=== PATIENT | female | born 1955 | race Caucasian/White ===

== ENCOUNTER 2019-11-29 12:38 | Emergency (ER) | payer OTHER ==
[~2019-11-29] VITALS: Ht 154.9 cm; Wt 88.9 kg
[2019-11-29 12:53] VITALS: BP_SYST 143
--- NOTE | 2019-11-29 12:53 | NUR ---
Patient triaged and placed in waiting room. VSS and patient appears in no acute distress at this time. Accompanied by self, awaiting available bed, and MD notified of need for MSE.
--- NOTE | 2019-11-29 12:54 | NUR ---
Pt brought by self,A&Ox4, pt presents to ER with R wrist/R hand pain and swelling after she was taking trash out 2 weeks ago, afebrile, skin pink and warm , cap refill <3.
--- NOTE | 2019-11-29 13:10 | NUR ---
Dr Jimenez at bedside examining patient
--- NOTE | 2019-11-29 14:20 | NUR ---
Pt sitting in bed, states pain improving
[2019-11-29] MEDS ORDERED: KETOROLAC TROMETHAMINE 30 MG VIAL IM ONE (14:30)
--- NOTE | 2019-11-29 15:59 | NUR ---
Patient given written and verbal discharge instructions and verbalizes understanding. ER MD discussed with patient the results and treatment provided. Patient in stable condition. ID arm band removed. I No Rx given. Patient educated on pain management and to follow up with PMD. Pain Scale 2/10 tolerable for patient. Opportunity for questions provided and answered. Medication side effect fact sheet provided.
[2019-11-29 16:00] VITALS: BP_SYST 143
== END 2019-11-29 16:00 | disposition home or self-care (01) ==
LOC: SED 12:38
DX: S63.501A Unspecified sprain of right wrist, initial encounter (principal); W18.39XA Other fall on same level, initial encounter; Y93.89 Activity, other specified; Y92.89 Other specified places as the place of occurrence of the external cause; Y99.8 Other external cause status
CPT/HCPCS: 29125; 73110; 73130; 96372; 99283; J1885

== ENCOUNTER 2023-03-17 06:55 | Day surgery (SDC) | payer OTHER ==
[~2023-03-17] VITALS: Ht 154.9 cm; Wt 85.7 kg
[2023-03-17] MEDS ORDERED: DEXAMETHASONE SOD PHOSPHATE 4 MG/ML VIAL ONE (07:45)
[2023-03-17] MEDS ORDERED: NS IRRIG SOLN 1000 ML IR ONE (07:45)
[2023-03-17] MEDS ORDERED: SEVOFLURANE 15 MIN GAS INH ONE (07:45)
[2023-03-17] MEDS ORDERED: ONDANSETRON HCL 4 MG/2 ML VIAL ONE (07:45)
[2023-03-17] MEDS ORDERED: LR 1,000 ML IV.SOLN IV ONE (07:45)
[2023-03-17] MEDS ORDERED: PROPOFOL 200MG/ 20ML VIAL (DIPRIVAN) IV ONE (07:45)
[2023-03-17] MEDS ORDERED: ceFAZolin SODIUM 2 GM VIAL ONE (07:45)
[2023-03-17] MEDS ORDERED: fentaNYL CITRATE/PF 100 MCG/2 ML AMP ONE (07:45)
[2023-03-17] MEDS ORDERED: MIDAZOLAM HCL 2 MG/2 ML VIAL (VERSED) ONE (07:45)
[2023-03-17] MEDS ORDERED: METOCLOPRAMIDE HCL 10 MG/2 ML VIAL IVP PRN (08:30)
[2023-03-17] MEDS ORDERED: MEPERIDINE HCL/PF 25 MG/ML DISP.SYRIN IVP PRN (08:30)
[2023-03-17] MEDS ORDERED: HYDROmorphone 1 MG/ML INJ. CARTRIDGE IVP PRN (08:30)
[2023-03-17] MEDS ORDERED: LR 1,000 ML IV SCH (08:30)
[2023-03-17] MEDS ORDERED: HYDROcodone/ACETAMIN 5-325 MG TAB (NORCO/ VICODIN) PO PRN (08:45)
[2023-03-17] MEDS ORDERED: OXYCODONE/ACETAMINOPHEN 5-325 TABLET PO PRN ×2 (08:45)
[2023-03-17] MEDS ORDERED: ONDANSETRON HCL 4 MG/2 ML VIAL IVP PRN (08:45)
[2023-03-17] MEDS ORDERED: HYDROmorphone 1 MG/ML INJ. CARTRIDGE ONE (09:12)
[2023-03-17] MEDS: HYDROmorphone 1 MG/ML INJ. CARTRIDGE IVP PRN ×2 (09:15→09:30)
[2023-03-17 13:10] VITALS: BP_SYST 135
== END 2023-03-17 13:10 | disposition home or self-care (01) ==
LOC: SDS 06:55 → SMU 06:56 → SDS 13:10
PROVIDERS: ATTEND Specialist
DX: N95.0 Postmenopausal bleeding (principal); N85.2 Hypertrophy of uterus; N39.3 Stress incontinence (female) (male); R93.89 Abnormal findings on diagnostic imaging of other specified body structures; I10 Essential (primary) hypertension; E11.69 Type 2 diabetes mellitus with other specified complication; E78.5 Hyperlipidemia, unspecified; E11.40 Type 2 diabetes mellitus with diabetic neuropathy, unspecified; Z90.49 Acquired absence of other specified parts of digestive tract
CPT/HCPCS: 87081; 58558; 82962; 88305; J1100; J3465; J2405; J2704; J3010; J1170; J7120; C1819; 88341; 88342; 88361

== ENCOUNTER 2024-04-22 16:39 | Inpatient (IN) | payer OTHER ==
[~2024-04-22] VITALS: Ht 154.9 cm; Wt 71.7 kg
[2024-04-22 16:48] VITALS: BP_SYST 138; PULSE 105; RESP 18; TEMP 98.3; O2SAT 98
[2024-04-22] MEDS: ONDANSETRON 4 MG ODT TAB PO ONE (17:03)
[2024-04-22 17:42] LABS: BILIRUBIN,URINE NEGATIVE (NEGATIVE); BLOOD, URINE NEGATIVE (NEGATIVE); CLARITY/URINE CLEAR (CLEAR); COLOR,URINE YELLOW (YELLOW); GLUCOSE,URINE NEGATIVE (NEGATIVE); KETONES,URINE NEGATIVE (NEGATIVE); LEUKOCYTE ESTERASE ,URINE NEGATIVE (NEGATIVE); NITRITE, URINE NEGATIVE (NEGATIVE); PROTEIN URINE NEGATIVE (NEGATIVE); UROBILINOGEN,URINE 0.2 (0.2-1.0)
[2024-04-22 17:47] LABS: BASOPHILS # (AUTO) 0.1 K/uL (0.0-0.2); BASOPHILS % (AUTO) 1.3 % (0.0-2.0); EOSINOPHILS % (AUTO) 0.5 % (0.0-4.0); HEMATOCRIT 33.6 % (36-48); HEMOGLOBIN 11.4 g/dL (12.0-16.0); LYMPHOCYTES # (AUTO) 1.5 K/uL (1.0-5.5); LYMPHOCYTES % (AUTO) 18.3 % (20.5-51.5); MEAN CORPUSCULAR HEMOGLOBIN 32 pg (27-31); MEAN CORPUSCULAR HGB CONC 34 % (32-36); MEAN CORPUSCULAR VOLUME 94 fL (79.0-98.0); MONOCYTES # (AUTO) 0.5 K/uL (0.0-1.0); MONOCYTES % (AUTO) 6.5 % (1.7-9.3); NEUTROPHILS # (AUTO) 6.2 K/uL (1.8-7.7); NEUTROPHILS % (AUTO) 73.4 % (40.0-70.0); PLATELET COUNT (AUTO) 307 K/uL (130-430); RED BLOOD CELL COUNT(AUTO) 3.59 MIL/uL (4.2-6.2); RED CELL DISTRIBUTION WIDTH 17.1 % (9.0-15.0); WHITE BLOOD COUNT (AUTO) 8.4 K/uL (4.8-10.8)
[2024-04-22 18:22] LABS: ALBUMIN 2.8 g/dL (3.4-4.8); BILIRUBIN,DIRECT 0.2 mg/dL (0.0-0.3); CALCIUM 8.9 mg/dL (8.4-11.0); CREATININE 0.81 mg/dL (0.55-1.30); POTASSIUM 3.6 mmol/L (3.5-5.1); TOTAL BILIRUBIN 0.9 mg/dL (0.0-1.0); TOTAL PROTEIN, SERUM 7.4 g/dL (6.4-8.3)
[2024-04-22 20:36] VITALS: BP_SYST 151; PULSE 92; RESP 18; TEMP 98.4
[2024-04-22 20:53] VITALS: O2SAT 95
[2024-04-22] MEDS ORDERED: HYDROcodone/ACETAMIN 5-325 MG TAB (NORCO/ VICODIN) PO PRN (22:30)
[2024-04-22] MEDS: HYDROcodone/ACETAMIN 10-325 MG TAB PO PRN (22:54)
[2024-04-23 03:17] VITALS: BP_SYST 133; PULSE 76; RESP 18; TEMP 97.5; O2SAT 94
[2024-04-23 08:00] VITALS: BP_SYST 145; PULSE 88; RESP 18; TEMP 98; O2SAT 99
[2024-04-23] MEDS ORDERED: POLYETHYLENE GLYCOL 3350, 17 GM/ POWD.PACK PO SCH (09:00)
[2024-04-23] MEDS: POLYETHYLENE GLYCOL 3350, 17 GM/ POWD.PACK PO SCH (11:02)
[2024-04-23 12:00] VITALS: BP_SYST 140; PULSE 78; RESP 18; TEMP 98.5; O2SAT 99
[2024-04-23] MEDS ORDERED: HYDROcodone/ACETAMIN 5-325 MG TAB (NORCO/ VICODIN) PO PRN (13:30)
[2024-04-23] MEDS ORDERED: LORazepam 2 MG/ML VIAL IVP PRN (13:30)
[2024-04-23] MEDS ORDERED: ACETAMINOPHEN 325 MG TABLET PO PRN (13:45)
[2024-04-23 14:13] LABS: BASOPHILS # (AUTO) 0.1 K/uL (0.0-0.2); BASOPHILS % (AUTO) 1.2 % (0.0-2.0); EOSINOPHILS # (AUTO) 0.1 K/uL (0.0-0.4); EOSINOPHILS % (AUTO) 1.2 % (0.0-4.0); HEMATOCRIT 35.3 % (36-48); HEMOGLOBIN 12.1 g/dL (12.0-16.0); LYMPHOCYTES # (AUTO) 1.7 K/uL (1.0-5.5); LYMPHOCYTES % (AUTO) 20.7 % (20.5-51.5); MEAN CORPUSCULAR HEMOGLOBIN 32 pg (27-31); MEAN CORPUSCULAR HGB CONC 34 % (32-36); MEAN CORPUSCULAR VOLUME 93 fL (79.0-98.0); MONOCYTES # (AUTO) 0.5 K/uL (0.0-1.0); MONOCYTES % (AUTO) 6.4 % (1.7-9.3); NEUTROPHILS # (AUTO) 5.8 K/uL (1.8-7.7); NEUTROPHILS % (AUTO) 70.5 % (40.0-70.0); PLATELET COUNT (AUTO) 344 K/uL (130-430); RED BLOOD CELL COUNT(AUTO) 3.79 MIL/uL (4.2-6.2); RED CELL DISTRIBUTION WIDTH 17.4 % (9.0-15.0); WHITE BLOOD COUNT (AUTO) 8.2 K/uL (4.8-10.8)
[2024-04-23 14:29] LABS: CALCIUM 9.3 mg/dL (8.4-11.0); CREATININE 0.79 mg/dL (0.55-1.30)
[2024-04-23 16:00] VITALS: BP_SYST 138; PULSE 84; RESP 18; TEMP 98.8; O2SAT 100
[2024-04-23] MEDS: GOLYTELY / COLYTE SOLUTION 4 LITERS PO ONE (17:46)
[2024-04-23] MEDS: BISACODYL 5 MG TABLET.DR (DULCOLAX) PO ONE (17:47)
[2024-04-23] MEDS: HYDROcodone/ACETAMIN 10-325 MG TAB PO PRN (18:16)
[2024-04-23 19:00] VITALS: O2SAT 99
[2024-04-23 20:00] VITALS: BP_SYST 143; PULSE 90; RESP 18; TEMP 98.6; O2SAT 96
[2024-04-24 00:40] VITALS: BP_SYST 143; PULSE 94; RESP 17; TEMP 96.9; O2SAT 97
[2024-04-24 05:34] LABS: BASOPHILS # (AUTO) 0.1 K/uL (0.0-0.2); BASOPHILS % (AUTO) 1.2 % (0.0-2.0); EOSINOPHILS # (AUTO) 0.1 K/uL (0.0-0.4); EOSINOPHILS % (AUTO) 0.9 % (0.0-4.0); HEMATOCRIT 30.9 % (36-48); HEMOGLOBIN 10.7 g/dL (12.0-16.0); LYMPHOCYTES # (AUTO) 1.5 K/uL (1.0-5.5); LYMPHOCYTES % (AUTO) 16.5 % (20.5-51.5); MEAN CORPUSCULAR HEMOGLOBIN 32 pg (27-31); MEAN CORPUSCULAR HGB CONC 35 % (32-36); MEAN CORPUSCULAR VOLUME 93 fL (79.0-98.0); MONOCYTES # (AUTO) 0.6 K/uL (0.0-1.0); MONOCYTES % (AUTO) 6.7 % (1.7-9.3); NEUTROPHILS % (AUTO) 74.7 % (40.0-70.0); PLATELET COUNT (AUTO) 293 K/uL (130-430); RED BLOOD CELL COUNT(AUTO) 3.32 MIL/uL (4.2-6.2); RED CELL DISTRIBUTION WIDTH 16.9 % (9.0-15.0); WHITE BLOOD COUNT (AUTO) 9.4 K/uL (4.8-10.8)
[2024-04-24 06:03] LABS: ALBUMIN 2.7 g/dL (3.4-4.8); CALCIUM 8.8 mg/dL (8.4-11.0); CREATININE 0.68 mg/dL (0.55-1.30); POTASSIUM 3.4 mmol/L (3.5-5.1); TOTAL BILIRUBIN 0.9 mg/dL (0.0-1.0); TOTAL PROTEIN, SERUM 6.9 g/dL (6.4-8.3)
[2024-04-24] MEDS: MIDAZOLAM HCL 5 MG/5 ML VIAL ONE (07:27)
[2024-04-24] MEDS: fentaNYL CITRATE/PF 100 MCG/2 ML AMP ONE (07:28)
[2024-04-24 08:00] VITALS: O2SAT 97
[2024-04-24 13:21] VITALS: BP_SYST 159; PULSE 90; RESP 18; TEMP 97.6; O2SAT 97
[2024-04-24 18:05] VITALS: BP_SYST 149; PULSE 89; RESP 16; TEMP 98.2; O2SAT 98
[2024-04-24 20:00] VITALS: BP_SYST 128; PULSE 98; RESP 18; TEMP 98.4; O2SAT 98
[2024-04-24] MEDS ORDERED: hydrALAZINE HCL 20 MG/ML VIAL IVP PRN (21:00)
[2024-04-25] VITALS: BP_SYST 130; PULSE 97; RESP 18; TEMP 98.2; O2SAT 98
[2024-04-25 06:44] LABS: BASOPHILS # (AUTO) 0.1 K/uL (0.0-0.2); BASOPHILS % (AUTO) 1.1 % (0.0-2.0); EOSINOPHILS # (AUTO) 0.1 K/uL (0.0-0.4); EOSINOPHILS % (AUTO) 1.4 % (0.0-4.0); LYMPHOCYTES # (AUTO) 1.7 K/uL (1.0-5.5); LYMPHOCYTES % (AUTO) 21.2 % (20.5-51.5); MEAN CORPUSCULAR HEMOGLOBIN 31 pg (27-31); MEAN CORPUSCULAR HGB CONC 33 % (32-36); MEAN CORPUSCULAR VOLUME 94 fL (79.0-98.0); MONOCYTES # (AUTO) 0.5 K/uL (0.0-1.0); NEUTROPHILS # (AUTO) 5.7 K/uL (1.8-7.7); NEUTROPHILS % (AUTO) 70.3 % (40.0-70.0); PLATELET COUNT (AUTO) 313 K/uL (130-430); RED BLOOD CELL COUNT(AUTO) 3.51 MIL/uL (4.2-6.2); RED CELL DISTRIBUTION WIDTH 17.2 % (9.0-15.0); WHITE BLOOD COUNT (AUTO) 8.1 K/uL (4.8-10.8)
[2024-04-25 07:24] LABS: ALBUMIN 2.6 g/dL (3.4-4.8); CALCIUM 8.6 mg/dL (8.4-11.0); CREATININE 0.62 mg/dL (0.55-1.30); POTASSIUM 3.3 mmol/L (3.5-5.1); TOTAL BILIRUBIN 1.1 mg/dL (0.0-1.0); TOTAL PROTEIN, SERUM 6.9 g/dL (6.4-8.3)
[2024-04-25 08:40] VITALS: BP_SYST 143; PULSE 92; RESP 16; TEMP 97.3; O2SAT 95
[2024-04-25] MEDS: *LOVENOX 1MG/KG Q12H/PHARMACY XX ONE (15:45)
[2024-04-25 20:04] VITALS: BP_SYST 141; PULSE 97; RESP 19; TEMP 98.8; O2SAT 98
[2024-04-25] MEDS: ENOXAPARIN SODIUM 80 MG/0.8 ML SYRINGE SUBCUT SCH (21:05)
[2024-04-26 00:48] VITALS: BP_SYST 143; PULSE 91; RESP 18; TEMP 98.4
[2024-04-26 05:50] LABS: BASOPHILS # (AUTO) 0.1 K/uL (0.0-0.2); BASOPHILS % (AUTO) 1.1 % (0.0-2.0); EOSINOPHILS # (AUTO) 0.1 K/uL (0.0-0.4); EOSINOPHILS % (AUTO) 1.3 % (0.0-4.0); HEMATOCRIT 31.9 % (36-48); HEMOGLOBIN 10.9 g/dL (12.0-16.0); LYMPHOCYTES # (AUTO) 1.7 K/uL (1.0-5.5); LYMPHOCYTES % (AUTO) 20.8 % (20.5-51.5); MEAN CORPUSCULAR HEMOGLOBIN 32 pg (27-31); MEAN CORPUSCULAR HGB CONC 34 % (32-36); MEAN CORPUSCULAR VOLUME 93 fL (79.0-98.0); MONOCYTES # (AUTO) 0.6 K/uL (0.0-1.0); MONOCYTES % (AUTO) 7.6 % (1.7-9.3); NEUTROPHILS # (AUTO) 5.7 K/uL (1.8-7.7); NEUTROPHILS % (AUTO) 69.2 % (40.0-70.0); PLATELET COUNT (AUTO) 274 K/uL (130-430); RED BLOOD CELL COUNT(AUTO) 3.42 MIL/uL (4.2-6.2); RED CELL DISTRIBUTION WIDTH 16.9 % (9.0-15.0); WHITE BLOOD COUNT (AUTO) 8.3 K/uL (4.8-10.8)
[2024-04-26 06:51] LABS: ALBUMIN 2.6 g/dL (3.4-4.8); CALCIUM 8.8 mg/dL (8.4-11.0); CREATININE 0.62 mg/dL (0.55-1.30); POTASSIUM 3.4 mmol/L (3.5-5.1); TOTAL BILIRUBIN 0.9 mg/dL (0.0-1.0); TOTAL PROTEIN, SERUM 6.9 g/dL (6.4-8.3)
[2024-04-26 08:00] VITALS: BP_SYST 138; PULSE 82; RESP 18; TEMP 97.7; O2SAT 100
[2024-04-26 11:47] VITALS: BP_SYST 159; PULSE 90; RESP 19; TEMP 98.6; O2SAT 96
[2024-04-26] MEDS ORDERED: GASTROGRAFIN 120 ML ONE (15:35)
[2024-04-26 18:24] VITALS: BP_SYST 151; PULSE 90; RESP 18; TEMP 97.6; O2SAT 95
[2024-04-26 20:00] VITALS: O2SAT 96
[2024-04-27 00:55] VITALS: BP_SYST 152; PULSE 97; RESP 17; TEMP 98.7; O2SAT 96
[2024-04-27 05:35] LABS: BASOPHILS # (AUTO) 0.1 K/uL (0.0-0.2); BASOPHILS % (AUTO) 0.8 % (0.0-2.0); EOSINOPHILS # (AUTO) 0.1 K/uL (0.0-0.4); EOSINOPHILS % (AUTO) 1.5 % (0.0-4.0); HEMATOCRIT 33.1 % (36-48); HEMOGLOBIN 10.9 g/dL (12.0-16.0); LYMPHOCYTES # (AUTO) 1.9 K/uL (1.0-5.5); LYMPHOCYTES % (AUTO) 22.3 % (20.5-51.5); MEAN CORPUSCULAR HEMOGLOBIN 31 pg (27-31); MEAN CORPUSCULAR HGB CONC 33 % (32-36); MEAN CORPUSCULAR VOLUME 94 fL (79.0-98.0); MONOCYTES # (AUTO) 0.6 K/uL (0.0-1.0); MONOCYTES % (AUTO) 6.5 % (1.7-9.3); NEUTROPHILS # (AUTO) 5.8 K/uL (1.8-7.7); NEUTROPHILS % (AUTO) 68.9 % (40.0-70.0); PLATELET COUNT (AUTO) 279 K/uL (130-430); RED BLOOD CELL COUNT(AUTO) 3.52 MIL/uL (4.2-6.2); WHITE BLOOD COUNT (AUTO) 8.4 K/uL (4.8-10.8)
[2024-04-27 06:16] LABS: ALBUMIN 2.5 g/dL (3.4-4.8); CALCIUM 8.8 mg/dL (8.4-11.0); CREATININE 0.63 mg/dL (0.55-1.30); POTASSIUM 3.4 mmol/L (3.5-5.1); TOTAL BILIRUBIN 0.9 mg/dL (0.0-1.0); TOTAL PROTEIN, SERUM 6.8 g/dL (6.4-8.3)
[2024-04-27 08:00] VITALS: BP_SYST 145; PULSE 97; RESP 17; TEMP 97.4; O2SAT 96
[2024-04-27 08:03] VITALS: O2SAT 96
[2024-04-27] MEDS ORDERED: NALOXONE HCL 0.4 MG/ML AMP (NARCAN) IVP PRN (11:30)
[2024-04-27 12:05] VITALS: BP_SYST 138; PULSE 98; RESP 18; TEMP 97.2; O2SAT 98
[2024-04-27] MEDS: MORPHINE 2 MG/ML INJ. SYRINGE IVP PRN (14:14)
[2024-04-27 16:00] LABS: INR 1.1 (0.8-1.2)
[2024-04-27 16:28] VITALS: BP_SYST 139; PULSE 97; RESP 18; TEMP 97.3; O2SAT 97
[2024-04-27] MEDS: LOSARTAN POTASSIUM 25 MG TABLET PO ONE (16:56)
[2024-04-27 20:00] VITALS: BP_SYST 129; PULSE 80; RESP 18; TEMP 97.7; O2SAT 97; O2SAT 98
[2024-04-28] VITALS: BP_SYST 131; PULSE 99; RESP 18; TEMP 97.6; O2SAT 96
[2024-04-28 05:54] LABS: BASOPHILS # (AUTO) 0.1 K/uL (0.0-0.2); BASOPHILS % (AUTO) 0.9 % (0.0-2.0); EOSINOPHILS # (AUTO) 0.1 K/uL (0.0-0.4); EOSINOPHILS % (AUTO) 1.5 % (0.0-4.0); HEMATOCRIT 34.7 % (36-48); HEMOGLOBIN 11.4 g/dL (12.0-16.0); LYMPHOCYTES # (AUTO) 1.6 K/uL (1.0-5.5); LYMPHOCYTES % (AUTO) 21.7 % (20.5-51.5); MEAN CORPUSCULAR HEMOGLOBIN 31 pg (27-31); MEAN CORPUSCULAR HGB CONC 33 % (32-36); MEAN CORPUSCULAR VOLUME 95 fL (79.0-98.0); MONOCYTES # (AUTO) 0.5 K/uL (0.0-1.0); MONOCYTES % (AUTO) 6.8 % (1.7-9.3); NEUTROPHILS % (AUTO) 69.1 % (40.0-70.0); PLATELET COUNT (AUTO) 293 K/uL (130-430); RED BLOOD CELL COUNT(AUTO) 3.66 MIL/uL (4.2-6.2); RED CELL DISTRIBUTION WIDTH 17.3 % (9.0-15.0); WHITE BLOOD COUNT (AUTO) 7.3 K/uL (4.8-10.8)
[2024-04-28 06:32] LABS: ALBUMIN 2.7 g/dL (3.4-4.8); CALCIUM 9.1 mg/dL (8.4-11.0); CREATININE 0.63 mg/dL (0.55-1.30); POTASSIUM 3.3 mmol/L (3.5-5.1); TOTAL BILIRUBIN 0.9 mg/dL (0.0-1.0); TOTAL PROTEIN, SERUM 7.3 g/dL (6.4-8.3)
[2024-04-28 08:03] VITALS: BP_SYST 109; PULSE 92; RESP 20; TEMP 97.2; O2SAT 96
[2024-04-28] MEDS: LOSARTAN POTASSIUM 25 MG TABLET PO SCH (09:18)
[2024-04-28 13:02] VITALS: BP_SYST 133; PULSE 102; RESP 20; TEMP 98.4; O2SAT 97
[2024-04-28 20:00] VITALS: BP_SYST 131; PULSE 92; RESP 20; TEMP 96.8; O2SAT 92
[2024-04-29 03:59] VITALS: BP_SYST 131; RESP 20; TEMP 98; O2SAT 97
[2024-04-29 06:59] LABS: BASOPHILS # (AUTO) 0.1 K/uL (0.0-0.2); BASOPHILS % (AUTO) 1.1 % (0.0-2.0); EOSINOPHILS # (AUTO) 0.1 K/uL (0.0-0.4); EOSINOPHILS % (AUTO) 2.3 % (0.0-4.0); HEMOGLOBIN 10.8 g/dL (12.0-16.0); LYMPHOCYTES # (AUTO) 1.6 K/uL (1.0-5.5); MEAN CORPUSCULAR HEMOGLOBIN 32 pg (27-31); MEAN CORPUSCULAR HGB CONC 34 % (32-36); MEAN CORPUSCULAR VOLUME 94 fL (79.0-98.0); MONOCYTES # (AUTO) 0.6 K/uL (0.0-1.0); MONOCYTES % (AUTO) 8.7 % (1.7-9.3); NEUTROPHILS # (AUTO) 4.1 K/uL (1.8-7.7); NEUTROPHILS % (AUTO) 62.9 % (40.0-70.0); PLATELET COUNT (AUTO) 245 K/uL (130-430); RED BLOOD CELL COUNT(AUTO) 3.42 MIL/uL (4.2-6.2); RED CELL DISTRIBUTION WIDTH 17.3 % (9.0-15.0); WHITE BLOOD COUNT (AUTO) 6.4 K/uL (4.8-10.8)
[2024-04-29 07:10] LABS: ALBUMIN 2.5 g/dL (3.4-4.8); CALCIUM 8.6 mg/dL (8.4-11.0); CREATININE 0.56 mg/dL (0.55-1.30); TOTAL BILIRUBIN 0.6 mg/dL (0.0-1.0); TOTAL PROTEIN, SERUM 6.7 g/dL (6.4-8.3)
[2024-04-29 08:05] VITALS: BP_SYST 136; PULSE 95; RESP 20; TEMP 97; O2SAT 96
[2024-04-29 11:33] VITALS: BP_SYST 141; PULSE 92; RESP 16; TEMP 98.8; O2SAT 97
[2024-04-29 16:40] VITALS: BP_SYST 140; PULSE 89; RESP 16; TEMP 98.2; O2SAT 96
[2024-04-29 20:00] VITALS: BP_SYST 135; PULSE 69; RESP 20; TEMP 96.8; O2SAT 96
[2024-04-30 04:58] VITALS: RESP 20; TEMP 98.2; O2SAT 98
[2024-04-30 08:00] VITALS: O2SAT 98
[2024-04-30 08:01] VITALS: BP_SYST 130; PULSE 86; RESP 17; TEMP 97.8; O2SAT 98
[2024-04-30 11:04] VITALS: BP_SYST 126; PULSE 85; RESP 16; TEMP 98.1; O2SAT 97
[2024-04-30 13:36] LABS: BASOPHILS # (AUTO) 0.1 K/uL (0.0-0.2); BASOPHILS % (AUTO) 1.1 % (0.0-2.0); EOSINOPHILS # (AUTO) 0.1 K/uL (0.0-0.4); EOSINOPHILS % (AUTO) 2.8 % (0.0-4.0); HEMATOCRIT 33.3 % (36-48); HEMOGLOBIN 10.9 g/dL (12.0-16.0); LYMPHOCYTES # (AUTO) 1.5 K/uL (1.0-5.5); LYMPHOCYTES % (AUTO) 27.2 % (20.5-51.5); MEAN CORPUSCULAR HEMOGLOBIN 31 pg (27-31); MEAN CORPUSCULAR HGB CONC 33 % (32-36); MEAN CORPUSCULAR VOLUME 94 fL (79.0-98.0); MONOCYTES # (AUTO) 0.5 K/uL (0.0-1.0); MONOCYTES % (AUTO) 8.9 % (1.7-9.3); NEUTROPHILS # (AUTO) 3.2 K/uL (1.8-7.7); PLATELET COUNT (AUTO) 223 K/uL (130-430); RED BLOOD CELL COUNT(AUTO) 3.53 MIL/uL (4.2-6.2); RED CELL DISTRIBUTION WIDTH 16.8 % (9.0-15.0); WHITE BLOOD COUNT (AUTO) 5.4 K/uL (4.8-10.8)
[2024-04-30 13:59] LABS: ALBUMIN 2.5 g/dL (3.4-4.8); CALCIUM 8.7 mg/dL (8.4-11.0); CREATININE 0.69 mg/dL (0.55-1.30); TOTAL BILIRUBIN 0.6 mg/dL (0.0-1.0); TOTAL PROTEIN, SERUM 6.8 g/dL (6.4-8.3)
[2024-04-30 14:03] LABS: POTASSIUM 2.9 mmol/L (3.5-5.1)
[2024-04-30 16:31] VITALS: BP_SYST 128; PULSE 79; RESP 16; TEMP 98.4; O2SAT 97
[2024-04-30] MEDS: POTASSIUM CHLORIDE 40 MEQ, LIDOCAINE JECT 2% PF 100 MG 50 MG in NS 250 ML IV ONE ×2 (16:42→21:15)
[2024-04-30 20:00] VITALS: BP_SYST 141; PULSE 88; RESP 16; TEMP 98; O2SAT 94
[2024-04-30] MEDS: KCL 40 mEq in 100 mL (PREMIX) 100 ML IV ONE (23:20)
[2024-04-30] MEDS: LIDOCAINE 2%, 20 ML MDV ONE (23:26)
[2024-05-01] VITALS: BP_SYST 109; PULSE 92; RESP 18; TEMP 97.9; O2SAT 98
[2024-05-01] MEDS: ACETAMINOPHEN 325 MG TABLET PO PRN (01:09)
[2024-05-01 04:17] LABS: BILIRUBIN,URINE NEGATIVE (NEGATIVE); COLOR,URINE YELLOW (YELLOW); GLUCOSE,URINE NEGATIVE (NEGATIVE); KETONES,URINE TRACE (NEGATIVE); NITRITE, URINE POSITIVE (NEGATIVE); PROTEIN URINE NEGATIVE (NEGATIVE)
[2024-05-01 04:24] LABS: BLOOD, URINE 1+ (NEGATIVE); CLARITY/URINE CLOUDY (CLEAR); LEUKOCYTE ESTERASE ,URINE 1+ (NEGATIVE)
[2024-05-01 04:25] LABS: BACTERIA,URINE MANY /HPF (None Seen); WBC,URINE 50-80 /HPF (0-3)
[2024-05-01 05:35] LABS: BASOPHILS # (AUTO) 0.1 K/uL (0.0-0.2); BASOPHILS % (AUTO) 1.1 % (0.0-2.0); EOSINOPHILS # (AUTO) 0.2 K/uL (0.0-0.4); EOSINOPHILS % (AUTO) 2.7 % (0.0-4.0); LYMPHOCYTES # (AUTO) 1.4 K/uL (1.0-5.5); MEAN CORPUSCULAR HEMOGLOBIN 32 pg (27-31); MEAN CORPUSCULAR HGB CONC 33 % (32-36); MEAN CORPUSCULAR VOLUME 95 fL (79.0-98.0); MONOCYTES # (AUTO) 0.5 K/uL (0.0-1.0); MONOCYTES % (AUTO) 7.7 % (1.7-9.3); NEUTROPHILS % (AUTO) 65.5 % (40.0-70.0); PLATELET COUNT (AUTO) 223 K/uL (130-430); RED BLOOD CELL COUNT(AUTO) 3.48 MIL/uL (4.2-6.2); RED CELL DISTRIBUTION WIDTH 17.1 % (9.0-15.0); WHITE BLOOD COUNT (AUTO) 6.1 K/uL (4.8-10.8)
[2024-05-01 05:51] LABS: CALCIUM 8.7 mg/dL (8.4-11.0); CREATININE 0.63 mg/dL (0.55-1.30); POTASSIUM 3.5 mmol/L (3.5-5.1)
[2024-05-01 08:00] VITALS: BP_SYST 130; PULSE 88; RESP 17; TEMP 97.6; O2SAT 97
[2024-05-01] MEDS ORDERED: CLINDAMYCIN PHOSPHATE 600 mg/50mL D5W IV ONE (12:30)
[2024-05-01] MEDS ORDERED: MEPERIDINE HCL/PF 25 MG/ML DISP.SYRIN IVP PRN (13:15)
[2024-05-01] MEDS: ACETAMINOPHEN I.V. 1000 MG 100 ML IV ONE (13:15)
[2024-05-01] MEDS ORDERED: LABETALOL 100 MG/ 20ML VIAL IVP PRN (13:15)
[2024-05-01] MEDS ORDERED: METOCLOPRAMIDE HCL 10 MG/2 ML VIAL IVP PRN (13:15)
[2024-05-01] MEDS ORDERED: HYDROmorphone 1 MG/ML INJ. CARTRIDGE IVP PRN ×2 (13:15→14:15)
[2024-05-01] MEDS: LR 1,000 ML IV SCH (13:30)
[2024-05-01] MEDS ORDERED: KETOROLAC TROMETHAMINE 15 MG VIAL IVP PRN (14:15)
[2024-05-01] MEDS: HYDROmorphone 1 MG/ML INJ. CARTRIDGE ONE (14:38)
[2024-05-01] MEDS: HYDROmorphone 1 MG/ML INJ. CARTRIDGE IVP PRN (14:41)
[2024-05-01] MEDS: GABAPENTIN 300 MG CAPSULE PO SCH (15:00)
[2024-05-01 15:43] VITALS: BP_SYST 131; PULSE 85; RESP 17; TEMP 98; O2SAT 96
[2024-05-01] MEDS: ACETAMINOPHEN 500 MG TABLET PO SCH (17:00)
[2024-05-01 20:00] VITALS: BP_SYST 123; PULSE 94; RESP 16; TEMP 97.8; O2SAT 97
[2024-05-01 20:30] VITALS: O2SAT 97
[2024-05-02] VITALS: BP_SYST 122; PULSE 90; RESP 16; TEMP 97.9; O2SAT 93
[2024-05-02 05:51] LABS: BASOPHILS % (AUTO) 0.5 % (0.0-2.0); EOSINOPHILS % (AUTO) 0.3 % (0.0-4.0); HEMOGLOBIN 10.4 g/dL (12.0-16.0); LYMPHOCYTES # (AUTO) 1.3 K/uL (1.0-5.5); LYMPHOCYTES % (AUTO) 15.5 % (20.5-51.5); MEAN CORPUSCULAR HEMOGLOBIN 32 pg (27-31); MEAN CORPUSCULAR HGB CONC 33 % (32-36); MEAN CORPUSCULAR VOLUME 95 fL (79.0-98.0); MONOCYTES # (AUTO) 0.5 K/uL (0.0-1.0); MONOCYTES % (AUTO) 6.4 % (1.7-9.3); NEUTROPHILS # (AUTO) 6.7 K/uL (1.8-7.7); NEUTROPHILS % (AUTO) 77.3 % (40.0-70.0); PLATELET COUNT (AUTO) 210 K/uL (130-430); RED BLOOD CELL COUNT(AUTO) 3.27 MIL/uL (4.2-6.2); WHITE BLOOD COUNT (AUTO) 8.6 K/uL (4.8-10.8)
[2024-05-02 06:09] LABS: CALCIUM 8.7 mg/dL (8.4-11.0); CREATININE 0.65 mg/dL (0.55-1.30); POTASSIUM 3.6 mmol/L (3.5-5.1)
[2024-05-02 08:00] VITALS: BP_SYST 131; PULSE 97; RESP 16; TEMP 97.5; O2SAT 98
[2024-05-02 11:05] VITALS: BP_SYST 113; PULSE 91; RESP 15; TEMP 98.2; O2SAT 95
[2024-05-02 16:06] VITALS: BP_SYST 116; PULSE 92; RESP 15; TEMP 98.3; O2SAT 96
[2024-05-02 20:00] VITALS: BP_SYST 132; PULSE 90; RESP 16; TEMP 98.2; O2SAT 98
[2024-05-02] MEDS: APIXABAN 2.5 MG TABLET PO SCH (21:59)
[2024-05-03] VITALS: BP_SYST 118; PULSE 85; RESP 16; TEMP 97.5; O2SAT 94
[2024-05-03 05:11] LABS: BASOPHILS % (AUTO) 0.5 % (0.0-2.0); EOSINOPHILS # (AUTO) 0.7 K/uL (0.0-0.4); EOSINOPHILS % (AUTO) 7.8 % (0.0-4.0); HEMATOCRIT 31.5 % (36-48); HEMOGLOBIN 10.5 g/dL (12.0-16.0); LYMPHOCYTES # (AUTO) 1.7 K/uL (1.0-5.5); MEAN CORPUSCULAR HEMOGLOBIN 32 pg (27-31); MEAN CORPUSCULAR HGB CONC 33 % (32-36); MEAN CORPUSCULAR VOLUME 94 fL (79.0-98.0); MONOCYTES # (AUTO) 0.6 K/uL (0.0-1.0); MONOCYTES % (AUTO) 7.2 % (1.7-9.3); NEUTROPHILS # (AUTO) 5.6 K/uL (1.8-7.7); NEUTROPHILS % (AUTO) 64.5 % (40.0-70.0); PLATELET COUNT (AUTO) 220 K/uL (130-430); RED BLOOD CELL COUNT(AUTO) 3.34 MIL/uL (4.2-6.2); RED CELL DISTRIBUTION WIDTH 17.6 % (9.0-15.0); WHITE BLOOD COUNT (AUTO) 8.7 K/uL (4.8-10.8)
[2024-05-03 05:57] LABS: ALBUMIN 2.3 g/dL (3.4-4.8); CALCIUM 8.7 mg/dL (8.4-11.0); CREATININE 0.71 mg/dL (0.55-1.30); POTASSIUM 3.2 mmol/L (3.5-5.1); TOTAL BILIRUBIN 0.7 mg/dL (0.0-1.0); TOTAL PROTEIN, SERUM 6.6 g/dL (6.4-8.3)
[2024-05-03] MEDS: ONDANSETRON HCL 4 MG/2 ML VIAL IVP PRN (06:14)
[2024-05-03 08:20] VITALS: O2SAT 98
[2024-05-03 08:50] VITALS: BP_SYST 103; PULSE 96; RESP 18; TEMP 98; O2SAT 98
[2024-05-03] MEDS: POTASSIUM CHLORIDE 20 MEQ TABLET.ER PO ONE (09:41)
[2024-05-03] MEDS: cefTRIAXone 1 GM in D5W 50 ML IV SCH (11:30)
[2024-05-03 12:49] VITALS: BP_SYST 127; PULSE 91; RESP 16; TEMP 97.5; O2SAT 96
[2024-05-03 18:37] VITALS: BP_SYST 142; PULSE 89; RESP 18; TEMP 98.2; O2SAT 98
[2024-05-03 20:15] VITALS: BP_SYST 135; PULSE 94; RESP 18; TEMP 98.6; O2SAT 95
[2024-05-04 00:05] VITALS: BP_SYST 120; PULSE 89; RESP 18; TEMP 97.8; O2SAT 95
[2024-05-04 05:47] LABS: BASOPHILS % (AUTO) 0.5 % (0.0-2.0); EOSINOPHILS # (AUTO) 0.7 K/uL (0.0-0.4); EOSINOPHILS % (AUTO) 8.5 % (0.0-4.0); HEMATOCRIT 29.9 % (36-48); HEMOGLOBIN 9.9 g/dL (12.0-16.0); LYMPHOCYTES # (AUTO) 1.6 K/uL (1.0-5.5); LYMPHOCYTES % (AUTO) 20.4 % (20.5-51.5); MEAN CORPUSCULAR HEMOGLOBIN 31 pg (27-31); MEAN CORPUSCULAR HGB CONC 33 % (32-36); MEAN CORPUSCULAR VOLUME 95 fL (79.0-98.0); MONOCYTES # (AUTO) 0.7 K/uL (0.0-1.0); MONOCYTES % (AUTO) 8.3 % (1.7-9.3); NEUTROPHILS # (AUTO) 4.9 K/uL (1.8-7.7); NEUTROPHILS % (AUTO) 62.3 % (40.0-70.0); PLATELET COUNT (AUTO) 210 K/uL (130-430); RED BLOOD CELL COUNT(AUTO) 3.16 MIL/uL (4.2-6.2); RED CELL DISTRIBUTION WIDTH 17.7 % (9.0-15.0)
[2024-05-04 05:53] LABS: ERYTHROCYTE SEDIMENTATION RATE 62 MM/HR (0-20)
[2024-05-04 06:06] LABS: CALCIUM 8.8 mg/dL (8.4-11.0); CREATININE 0.62 mg/dL (0.55-1.30); POTASSIUM 3.6 mmol/L (3.5-5.1)
[2024-05-04 08:00] VITALS: BP_SYST 132; PULSE 91; RESP 14; TEMP 96.2; O2SAT 98
[2024-05-04 08:20] VITALS: O2SAT 95
[2024-05-04] MEDS ORDERED: POLY17PO4 PO (09:22)
[2024-05-04] MEDS ORDERED: NEU300 PO (09:22)
[2024-05-04] MEDS ORDERED: HYDR-3927 PO (09:22)
[2024-05-04] MEDS ORDERED: LOSA-412 PO (09:22)
[2024-05-04 12:00] VITALS: BP_SYST 133; PULSE 92; RESP 16; TEMP 97.1; O2SAT 94
[2024-05-04 17:00] VITALS: BP_SYST 130; PULSE 92; RESP 16; TEMP 97.4; O2SAT 95
[2024-05-04] MEDS ORDERED: LEVO-62 PO (22:10)
== END 2024-05-04 18:05 | disposition home health service (06) | DRG 330 ==
LOC: SED 16:39 → SMU 18:57
PROVIDERS: ADMIT Preventive Medicine Preventive Medicine/Occupational Environmental Medicine; ATTEND Specialist
PROC: 0DJD8ZZ Inspection of Lower Intestinal Tract, Via Natural or Artificial Opening Endoscopic (ICD-10-PCS; principal; 2024-04-24 12:15)
PROC: 0D1N0Z4 Bypass Sigmoid Colon to Cutaneous, Open Approach (ICD-10-PCS; 2024-05-01)
PROC: 0DBW0ZX Excision of Peritoneum, Open Approach, Diagnostic (ICD-10-PCS; 2024-05-01)
DX: C78.6 Secondary malignant neoplasm of retroperitoneum and peritoneum (principal); E44.1 Mild protein-calorie malnutrition; N39.0 Urinary tract infection, site not specified; K59.00 Constipation, unspecified; K57.30 Diverticulosis of large intestine without perforation or abscess without bleeding; I10 Essential (primary) hypertension; E88.09 Other disorders of plasma-protein metabolism, not elsewhere classified; E87.6 Hypokalemia; E66.9 Obesity, unspecified; E11.65 Type 2 diabetes mellitus with hyperglycemia; D64.9 Anemia, unspecified; B96.1 Klebsiella pneumoniae [K. pneumoniae] as the cause of diseases classified elsewhere; B96.89 Other specified bacterial agents as the cause of diseases classified elsewhere; Z95.828 Presence of other vascular implants and grafts; Z86.718 Personal history of other venous thrombosis and embolism; Z85.42 Personal history of malignant neoplasm of other parts of uterus; Z68.29 Body mass index [BMI] 29.0-29.9, adult; Z79.01 Long term (current) use of anticoagulants; Z79.899 Other long term (current) drug therapy
CPT/HCPCS: 36415; 71045; 80048; 80053; 80076; 81000; 81001; 81003; 81015; 82378; 82948; 83037; 83690; 84484; 85025; 85610; 85651; 85730; 86304; 87081; 87086; 87186; 88305; 88341; 88342; 93005; 93306; 97110-GP; 97116-GP; 97530-GP; 99285; C1727; J0131; J0696; J1100; J1170; J1650; J1885; J2001; J2250; J2270; J2405; J2704; J3010; J3465; J3480; J3490; J7050; J7060; J7120; Q0162; Q9963

== ENCOUNTER 2024-05-06 10:18 | Emergency (ER) | payer OTHER ==
[~2024-05-06] VITALS: Ht 154.9 cm; Wt 45.4 kg
[~2024-05-06 10:18] MED LIST: HYDR-3927 PO; LEVO-62 PO; LOSA-412 PO; NEU300 PO; POLY17PO4 PO
[2024-05-06 10:20] VITALS: BP_SYST 159; PULSE 100; RESP 18; TEMP 98.3; O2SAT 98
[2024-05-06 11:15] LABS: BILIRUBIN,URINE NEGATIVE (NEGATIVE); BLOOD, URINE NEGATIVE (NEGATIVE); CLARITY/URINE CLEAR (CLEAR); COLOR,URINE YELLOW (YELLOW); GLUCOSE,URINE NEGATIVE (NEGATIVE); KETONES,URINE 1+ (NEGATIVE); LEUKOCYTE ESTERASE ,URINE NEGATIVE (NEGATIVE); NITRITE, URINE NEGATIVE (NEGATIVE); PH,URINE 5.5 (5.0-8.0); PROTEIN URINE NEGATIVE (NEGATIVE); UROBILINOGEN,URINE 0.2 (0.2-1.0)
[2024-05-06 11:27] LABS: BASOPHILS % (AUTO) 0.6 % (0.0-2.0); EOSINOPHILS # (AUTO) 0.4 K/uL (0.0-0.4); HEMATOCRIT 33.3 % (36-48); LYMPHOCYTES # (AUTO) 1.1 K/uL (1.0-5.5); LYMPHOCYTES % (AUTO) 13.8 % (20.5-51.5); MEAN CORPUSCULAR HEMOGLOBIN 31 pg (27-31); MEAN CORPUSCULAR HGB CONC 33 % (32-36); MEAN CORPUSCULAR VOLUME 95 fL (79.0-98.0); MONOCYTES # (AUTO) 0.5 K/uL (0.0-1.0); MONOCYTES % (AUTO) 6.5 % (1.7-9.3); NEUTROPHILS # (AUTO) 5.9 K/uL (1.8-7.7); NEUTROPHILS % (AUTO) 74.1 % (40.0-70.0); PLATELET COUNT (AUTO) 272 K/uL (130-430); RED BLOOD CELL COUNT(AUTO) 3.52 MIL/uL (4.2-6.2); RED CELL DISTRIBUTION WIDTH 17.1 % (9.0-15.0)
[2024-05-06 11:50] LABS: ALBUMIN 2.3 g/dL (3.4-4.8); CALCIUM 9.2 mg/dL (8.4-11.0); CREATININE 0.63 mg/dL (0.55-1.30); POTASSIUM 3.7 mmol/L (3.5-5.1); TOTAL BILIRUBIN 0.7 mg/dL (0.0-1.0); TOTAL PROTEIN, SERUM 7.1 g/dL (6.4-8.3)
[2024-05-06] MEDS: HYDROcodone/ACETAMIN 10-325 MG TAB PO ONE (12:39)
[2024-05-06 12:41] VITALS: BP_SYST 146; PULSE 100; RESP 18; TEMP 97.7; O2SAT 97
== END 2024-05-06 13:41 | disposition home or self-care (01) ==
LOC: SED 10:18
DX: G89.29 Other chronic pain (principal); R10.9 Unspecified abdominal pain; C55 Malignant neoplasm of uterus, part unspecified; Z93.3 Colostomy status
CPT/HCPCS: 36415; 80053; 81001; 81003; 85025; 99283